=== PATIENT | female | born 1965 | race Caucasian/White ===

== ENCOUNTER 2021-05-01 17:55 | Emergency (ER) | payer BC, SELFPAY ==
[2021-05-01 20:21] VITALS: BP 0/0; PULSE 0; RESP 0; TEMP -17.7; TEMP 0
== END 2021-05-01 20:22 | disposition left against medical advice (07) ==
LOC: UTC 18:03
PROVIDERS: Emergency Provider Nurse Practitioner; PCP Family Medicine
DX: R07.9 Chest pain, unspecified (principal); R05.9 Cough, unspecified; Z53.21 Procedure and treatment not carried out due to patient leaving prior to being seen by health care provider